=== PATIENT | male | born 1995 | race Caucasian/White ===

== ENCOUNTER 2016-10-29 10:27 | Emergency (ER) | payer MEDICAID ==
[~2016-10-29] VITALS: Ht 175.3 cm; Wt 70.0 kg
[2016-10-29] MEDS ORDERED: BACITRACIN ZINC OINT UDPKT TOP ONE ×2 (11:00→12:00)
[2016-10-29] MEDS ORDERED: IBUPROFEN 600MG TABLET PO ONE (11:45)
[2016-10-29 12:00] VITALS: BP 125/99
== END 2016-10-29 12:40 | disposition home or self-care (01) ==
LOC: ER 10:28
DX: M25.531 Pain in right wrist (principal); M79.641 Pain in right hand; S80.211A Abrasion, right knee, initial encounter; V28.4XXA Motorcycle driver injured in noncollision transport accident in traffic accident, initial encounter; Y93.89 Activity, other specified; Y92.488 Other paved roadways as the place of occurrence of the external cause
CPT/HCPCS: 73100; 73120; 99284; X7700; Z7610